=== PATIENT | male | born 1990 | race Caucasian/White ===

== ENCOUNTER 2024-03-01 16:50 | Outpatient (CLI) | payer OTHER | END 2024-03-01 16:51 | disposition critical access hospital (66) | LOC: EMS 16:50 | DX: R41.82 Altered mental status, unspecified (principal); R45.6 Violent behavior; Z78.1 Physical restraint status | CPT/HCPCS: A0425; A0429 ==

== ENCOUNTER 2024-03-01 17:26 | Emergency (ER) | payer OTHER ==
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
[2024-03-01 17:43] VITALS: BP 127/102; O2SAT 98
== END 2024-03-01 21:00 | disposition home or self-care (01) ==
LOC: EDBD → ED 17:26
DX: F10.121 Alcohol abuse with intoxication delirium (principal)
CPT/HCPCS: 99283